=== PATIENT | female | born 1960 ===

== ENCOUNTER 2020-07-31 06:00 | Day surgery (SDC) | payer OTHER ==
[2020-07-31] MEDS ORDERED: DUI500 PO (10:08)
[2020-07-31] MEDS ORDERED: OXYC1TAB9 PO (10:08)
== END 2020-07-31 13:05 | disposition home or self-care (01) ==
LOC: CIR.AMB 06:00
PROVIDERS: ATTEND Orthopaedic Surgery Sports Medicine
DX: M75.01 Adhesive capsulitis of right shoulder (principal); Z20.828 Contact with and (suspected) exposure to other viral communicable diseases